=== PATIENT | female | born 1940 | race Caucasian/White ===

== ENCOUNTER 2019-07-03 11:04 | Outpatient (CLI) | payer OTHER ==
[~2019-07-03 11:04] MED LIST: COZAAR100 MG PO; EFFEXOR XR75 MG PO; JANUMET 50-1,01 EACH PO; LIPITOR40 MG PO; METFORMIN HCL500 M3 PO; NEURONTIN300 MG PO; RANITIDINE HCL300 M1 PO; VITAMIN D3400 UNI1 PO
== END 2019-07-03 11:20 | disposition home or self-care (01) ==
LOC: LAB 11:04
DX: Z01.818 Encounter for other preprocedural examination (principal)

== ENCOUNTER 2019-07-04 09:41 | Day surgery (SDC) | payer OTHER | END 2019-07-04 15:10 | disposition home or self-care (01) | LOC: CIR.AMB 09:41 | DX: M47.26 Other spondylosis with radiculopathy, lumbar region (principal); M47.27 Other spondylosis with radiculopathy, lumbosacral region ==